=== PATIENT | male | born 1950 | race Two or more races ===

== ENCOUNTER 2017-11-03 07:34 | Day surgery (SDC) | payer OTHER ==
[~2017-11-03 07:34] MED LIST: BALANCED SALT IRRIG SOLN COMB1 500 ML, EPINEPHRINE-PF 1:1000 0.5 MG IO ONE
[2017-11-03] MEDS ORDERED: KETOROLAC 0.5% OPHT DROP 3 ML BOTTLE ONE (07:46)
[2017-11-03] MEDS ORDERED: CIPROFLOXACIN 0.3% OPHT DROP 2.5 ML BOTTLE ONE (07:46)
[2017-11-03] MEDS ORDERED: TROPICAMIDE 1% OPHT DROP 3 ML BOTTLE ONE (07:46)
[2017-11-03] MEDS ORDERED: PHENYLEPHRINE 2.5% OPHT DROP 2 ML BOTTLE ONE (07:47)
[2017-11-03] MEDS ORDERED: CYCLOPENTOLATE 1% OPHT DROP 2 ML BOTTLE ONE (07:47)
[2017-11-03] MEDS ORDERED: FENTANYL CITRATE 100 MCG/2 ML AMPUL ONE (08:03)
[2017-11-03] MEDS ORDERED: MOXIFLOXACIN HCL 3 ML OPHT DROPS ONE (08:23)
[2017-11-03] MEDS ORDERED: ACETYLCHOLINE CHLORIDE 1% OPHT 1 EA KIT ONE (08:24)
[2017-11-03] MEDS ORDERED: TETRACAINE HCL 0.5% OPHT DROP 2 ML BOTTLE ONE (08:24)
[2017-11-03] MEDS ORDERED: LIDOCAINE-MPF 2% 5 ML VIAL ONE (08:24)
[2017-11-03] MEDS ORDERED: TIMOLOL MALEATE 0.5% OPHT DROP 5 ML BOTTLE ONE (08:24)
[2017-11-03] MEDS ORDERED: BALANCED SALT IRRIG SOLN COMB2 15 ML IRRIG.SOLN ONE (08:24)
[2017-11-03] MEDS ORDERED: NEO/POLYMYX B/DEXAME OPHT OINT 3.5 GM TUBE ONE (08:24)
[2017-11-03] MEDS ORDERED: BUPIVACAINE PF 0.5% 30 ML VIAL ONE (08:25)
[2017-11-03] MEDS ORDERED: HYALURONATE SODIUM 12.8 MG/0.8 ML DISP.SYRIN ONE (08:25)
[2017-11-03] MEDS ORDERED: HYALURONIDASE,OVINE 200 UNITS/ML VIAL ONE (08:25)
[2017-11-03] MEDS ORDERED: HYALURONATE SODIUM 8.5 MG/0.85 ML DISP.SYRIN ONE (08:25)
[2017-11-03] MEDS ORDERED: TRYPAN BLUE 0.5 ML DISP.SYRIN ONE (09:18)
[2017-11-03] MEDS ORDERED: ONDANSETRON 4 MG/2 ML VIAL IV ONE (09:35)
[2017-11-03] MEDS ORDERED: hydrALAZINE HCL 20 MG/1 ML VIAL IV ONE (09:35)
[2017-11-03] MEDS ORDERED: ESMOLOL HCL 100 MG/10 ML VIAL IV ONE (09:35)
[2017-11-03] MEDS ORDERED: LABETALOL HCL 100 MG/20 ML VIAL IV ONE (09:35)
== END 2017-11-03 10:45 | disposition home or self-care (01) ==
LOC: DS 07:34
PROVIDERS: ATTEND Ophthalmology
DX: H25.9 Unspecified age-related cataract (principal); Z53.09 Procedure and treatment not carried out because of other contraindication; H40.9 Unspecified glaucoma; I10 Essential (primary) hypertension; E78.5 Hyperlipidemia, unspecified; J43.9 Emphysema, unspecified; M81.0 Age-related osteoporosis without current pathological fracture; J98.11 Atelectasis; Z79.899 Other long term (current) drug therapy; Z86.73 Personal history of transient ischemic attack (TIA), and cerebral infarction without residual deficits
CPT/HCPCS: 66984; 71045; A4663; J0171; J0360; J2405; J3010; J3490 ×2; J7120; J7321 ×2; J3471; Q9968

== ENCOUNTER 2017-12-01 06:41 | Day surgery (SDC) | payer OTHER, MEDICAID ==
[2017-12-01] MEDS ORDERED: FENTANYL CITRATE 100 MCG/2 ML AMPUL MC ONE (06:42)
[2017-12-01] MEDS ORDERED: LORAZEPAM 0.5 MG TABLET ONE (06:55)
[2017-12-01] MEDS ORDERED: CYCLOPENTOLATE 1% OPHT DROP 2 ML BOTTLE ONE (06:56)
[2017-12-01] MEDS ORDERED: PHENYLEPHRINE 2.5% OPHT DROP 2 ML BOTTLE ONE (06:56)
[2017-12-01] MEDS ORDERED: TROPICAMIDE 1% OPHT DROP 3 ML BOTTLE ONE (06:56)
[2017-12-01] MEDS ORDERED: KETOROLAC 0.5% OPHT DROP 3 ML BOTTLE ONE (06:57)
[2017-12-01] MEDS ORDERED: MOXIFLOXACIN HCL 3 ML OPHT DROPS ONE ×2 (06:58→07:02)
[2017-12-01] MEDS ORDERED: LIDOCAINE-MPF 2% 5 ML VIAL ONE (07:02)
[2017-12-01] MEDS ORDERED: NEO/POLYMYX B/DEXAME OPHT OINT 3.5 GM TUBE ONE (07:02)
[2017-12-01] MEDS ORDERED: TETRACAINE HCL 0.5% OPHT DROP 2 ML BOTTLE ONE (07:02)
[2017-12-01] MEDS ORDERED: TIMOLOL MALEATE 0.5% OPHT DROP 5 ML BOTTLE ONE (07:02)
[2017-12-01] MEDS ORDERED: HYALURONATE SODIUM 12.8 MG/0.8 ML DISP.SYRIN ONE (07:03)
[2017-12-01] MEDS ORDERED: ACETYLCHOLINE CHLORIDE 1% OPHT 1 EA KIT ONE (07:03)
[2017-12-01] MEDS ORDERED: BUPIVACAINE PF 0.5% 30 ML VIAL ONE (07:03)
[2017-12-01] MEDS ORDERED: HYALURONIDASE,OVINE 200 UNITS/ML VIAL ONE (07:03)
[2017-12-01] MEDS ORDERED: HYALURONATE SODIUM 8.5 MG/0.85 ML DISP.SYRIN ONE (07:03)
[2017-12-01] MEDS ORDERED: BALANCED SALT IRRIG SOLN COMB2 15 ML IRRIG.SOLN ONE (07:03)
[2017-12-01 07:08] LABS: BASOPHILS % (AUTO) 0.5 % (0.0-2.0); EOSINOPHILS # (AUTO) 0.1 K/uL (0.0-0.7); EOSINOPHILS % (AUTO) 2.2 % (0.0-7.0); HEMATOCRIT 48.3 % (36.7-47.1); HEMOGLOBIN 16.5 g/dL (12.5-16.3); LYMPHOCYTES # (AUTO) 2.2 K/uL (20.0-40.0); LYMPHOCYTES % (AUTO) 34.4 % (20.5-51.5); MEAN CORPUSCULAR HGB CONC 34 g/dL (32.5-36.3); MEAN CORPUSCULAR VOLUME 84.9 fL (73.0-96.2); MONOCYTES # (AUTO) 0.5 K/uL (2.0-10.0); MONOCYTES % (AUTO) 8.1 % (0.0-11.0); NEUTROPHILS # (AUTO) 3.5 K/uL (1.8-8.9); NEUTROPHILS % (AUTO) 54.8 % (38.5-71.5); PLATELET COUNT (AUTO) 217 K/uL (152-348); RED BLOOD CELL COUNT(AUTO) 5.69 MIL/uL (4.06-5.63); WHITE BLOOD COUNT (AUTO) 6.4 K/uL (3.6-10.2)
[2017-12-01] MEDS ORDERED: BALANCED SALT IRRIG SOLN COMB1 500 ML ONE (07:09)
[2017-12-01 07:11] LABS: *BILIRUBIN,URIN NEGATIVE (NEGATIVE); *BLOOD, URINE 1+ (NEGATIVE); *CLARITY,URINE CLEAR (CLEAR); *COLOR,URINE YELLOW (YELLOW); *KETONES,URINE NEGATIVE (NEGATIVE); *PROTEIN,URINE NEGATIVE (NEGATIVE); *UROBILINOGEN,URINE 0.2 E.U./dl (NORMAL); LEUKOCYTE ESTERASE ,URINE NEGATIVE (NEGATIVE); NITRITE, URINE NEGATIVE (NEGATIVE); UGLUCOSE NEGATIVE (NEGATIVE)
[2017-12-01 07:14] LABS: BACTERIA,URINE FEW /HPF (NONE SEEN); RBC,URINE NONE SEEN /HPF (0-3); SQUAMOUS EPITHELIAL CELL,UR FEW /HPF (NONE SEEN); WBC,URINE 0-3 /HPF (0-3)
[2017-12-01 07:17] LABS: CREATININE 0.9 mg/dL (0.6-1.3); POTASSIUM 3.6 mmol/L (3.5-5.1)
[2017-12-01] MEDS ORDERED: FENTANYL CITRATE 100 MCG/2 ML AMPUL ONE (07:24)
[2017-12-01] MEDS ORDERED: BALANCED SALT IRRIG SOLN COMB1 500 ML, EPINEPHRINE-PF 1:1000 0.5 MG IO ONE ×2 (08:00)
[2017-12-01] MEDS ORDERED: TRYPAN BLUE 0.5 ML DISP.SYRIN ONE (08:16)
== END 2017-12-01 11:00 | disposition home or self-care (01) ==
LOC: DS 06:41
PROVIDERS: ATTEND Ophthalmology
DX: H25.11 Age-related nuclear cataract, right eye (principal); I10 Essential (primary) hypertension; M81.0 Age-related osteoporosis without current pathological fracture; Z86.73 Personal history of transient ischemic attack (TIA), and cerebral infarction without residual deficits; Z98.890 Other specified postprocedural states; J43.9 Emphysema, unspecified; E78.5 Hyperlipidemia, unspecified; Z79.899 Other long term (current) drug therapy
CPT/HCPCS: 36415; 85025; 85730; J0171; J3010; J3471; J3490; J7321; Q9968; V2632

== ENCOUNTER 2019-01-18 05:52 | Day surgery (SDC) | payer OTHER, MEDICAID ==
[2019-01-18] MEDS ORDERED: PROPOFOL 200 MG/20 ML BOTTLE IV ONE (05:53)
[2019-01-18] MEDS ORDERED: DEXAMETHASONE SOD PHOSPHATE 4 MG INJ IV ONE (05:53)
[2019-01-18] MEDS ORDERED: ONDANSETRON 4 MG/2 ML VIAL IV ONE (05:53)
[2019-01-18] MEDS ORDERED: KETOROLAC 0.5% OPHT DROP 3 ML BOTTLE ONE (06:51)
[2019-01-18] MEDS ORDERED: TROPICAMIDE 1% OPHT DROP 3 ML BOTTLE ONE (06:52)
[2019-01-18] MEDS ORDERED: PHENYLEPHRINE 2.5% OPHT DROP 2 ML BOTTLE ONE (06:52)
[2019-01-18] MEDS ORDERED: CYCLOPENTOLATE 1% OPHT DROP 2 ML BOTTLE ONE (06:52)
[2019-01-18] MEDS ORDERED: CIPROFLOXACIN 0.3% OPHT DROP 2.5 ML BOTTLE ONE ×2 (06:52→07:34)
[2019-01-18] MEDS ORDERED: BALANCED SALT IRRIG SOLN COMB1 500 ML, EPINEPHRINE-PF 1:1000 0.5 MG IO ONE ×2 (07:00)
[2019-01-18] MEDS ORDERED: FENTANYL CITRATE 100 MCG/2 ML AMPUL ONE (07:17)
[2019-01-18] MEDS ORDERED: LIDOCAINE-MPF 2% 5 ML VIAL ONE (07:32)
[2019-01-18] MEDS ORDERED: HYALURONIDASE,OVINE 200 UNITS/ML VIAL ONE (07:33)
[2019-01-18] MEDS ORDERED: BALANCED SALT IRRIG SOLN COMB2 15 ML IRRIG.SOLN ONE (07:33)
[2019-01-18] MEDS ORDERED: BUPIVACAINE PF 0.5% 30 ML VIAL ONE (07:33)
[2019-01-18] MEDS ORDERED: TETRACAINE HCL 0.5% OPHT DROP 2 ML BOTTLE ONE (07:33)
[2019-01-18] MEDS ORDERED: HYALURONATE SODIUM 12.8 MG/0.8 ML DISP.SYRIN ONE (07:33)
[2019-01-18] MEDS ORDERED: ACETYLCHOLINE CHLORIDE 1% OPHT 1 EA KIT ONE (07:33)
[2019-01-18] MEDS ORDERED: NEO/POLYMYX B/DEXAM OPHT DROP 5 ML BOTTLE ONE (07:36)
[2019-01-18] MEDS ORDERED: TRYPAN BLUE 0.5 ML DISP.SYRIN ONE (09:17)
[2019-01-18] MEDS ORDERED: [UNRECOGNIZED DRUG - OTHER] ONE (09:17)
[2019-01-18] MEDS ORDERED: BALANCED SALT IRRIG SOLN COMB1 0 ML ONE (09:28)
== END 2019-01-18 10:55 | disposition home or self-care (01) ==
LOC: DS 05:52
PROVIDERS: ATTEND Ophthalmology
DX: H25.12 Age-related nuclear cataract, left eye (principal); I70.0 Atherosclerosis of aorta; I11.9 Hypertensive heart disease without heart failure; E78.5 Hyperlipidemia, unspecified; J43.9 Emphysema, unspecified; M81.0 Age-related osteoporosis without current pathological fracture; F15.90 Other stimulant use, unspecified, uncomplicated; Z98.890 Other specified postprocedural states
CPT/HCPCS: 36415; 71045; 84132; A4663; J0171; J1100; J2405; J3010; J3471; J3490; J3590; J7120; J7321; Q9968; V2632